=== PATIENT | female | born 1990 | race Caucasian/White ===

== ENCOUNTER → 2022-03-08 | Outpatient (CLI) | payer MEDICAID, OTHER ==
[~2022-03-08] MED LIST: IBUP-2029 PO; LEVO500T2 PO; METR500T PO
== END | disposition home or self-care (01) ==
LOC: LAB 09:14
PROVIDERS: ATTEND Obstetrics & Gynecology Obstetrics
DX: Z01.812 Encounter for preprocedural laboratory examination (principal); Z20.822 Contact with and (suspected) exposure to COVID-19
CPT/HCPCS: 87426

== ENCOUNTER 2022-03-09 05:23 | Inpatient (IN) | payer MEDICAID, OTHER ==
[~2022-03-09] VITALS: Ht 152.4 cm; Wt 87.1 kg
[2022-03-09] MEDS ORDERED: METHYLERGONOVINE MALEATE 0.2 MG/ML IM PRN (06:30)
[2022-03-09] MEDS ORDERED: CARBOPROST TROMETHAMINE 250 MCG/ML AMPUL IM PRN (06:30)
[2022-03-09] MEDS ORDERED: MISOPROSTOL 100MCG TABLET VG SCH (06:30)
[2022-03-09] MEDS ORDERED: LACTATED RINGERS 1,000 ML IV SCH (06:30)
[2022-03-09] MEDS ORDERED: NALOXONE HCL 0.4 MG/ML 1ML VIAL IM PRN (06:30)
[2022-03-09 07:06] LABS: BASOPHILS % 0.3 % (0.0-2.0); HEMATOCRIT. 32.9 % (36.0-48.0); LYMPHOCYTES % 27.5 % (20.0-50.0); MEAN CORPUSCULAR HEMOGLOBIN 25.6 pg (28.0-32.0); MEAN CORPUSCULAR VOLUME 76.5 fL (81.0-99.0); MEAN PLATELET VOLUME 7.7 fl (7.4-10.4); MONOCYTES % 7.9 % (2.0-8.0); NEUTROPHILS % 63.3 % (40.0-76.0); PLATELET 266 x1000/uL (130-400); RED CELL DISTRIBUTION WIDTH 16.1 % (11.6-14.6)
[2022-03-09 07:10] LABS: CLARITY URINE TURBID (CLEAR); COLOR URINE YELLOW (YELLOW); KETONES URINE NEGATIVE (NEGATIVE); LEUKOCYTE ESTERASE URINE 1+ (NEGATIVE); NITRITE URINE NEGATIVE (NEGATIVE); OCCULT BLOOD URINE NEGATIVE (NEGATIVE); PH URINE 6.5 (4.5-8.0); PROTEIN URINE TRACE (NEGATIVE); SPECIFIC GRAVITY URINE 1.019 (1.005-1.030); UROBILINOGEN URINE 0.2 E.U./dL (0.2-1.0)
[2022-03-09 07:20] LABS: INR 0.9; PARTIAL THROMBOPLASTIN TIME 29.9 sec (23.4-31.0); PROTHROMBIN TIME 9.6 sec (9.6-11.0)
[2022-03-09 07:32] LABS: *AMPHETAMINES SCREEN URINE NEGATIVE (NEGATIVE); *BARBITURATES SCREEN URINE NEGATIVE (NEGATIVE); *BENZODIAZEPINES SCREEN URINE NEGATIVE (NEGATIVE); *COCAINE SCREEN URINE NEGATIVE (NEGATIVE); CANNABINOID URINE SCREEN NEGATIVE (NEGATIVE); METHADONE URINE SCREEN NEGATIVE (NEGATIVE); OPIATES URINE SCREEN NEGATIVE (NEGATIVE); PHENCYCLIDINE URINE SCREEN NEGATIVE (NEGATIVE)
[2022-03-09 07:42] LABS: HEPATITIS B SURFACE ANTIGEN NEGATIVE
[2022-03-09] MEDS ORDERED: MORPHINE SULFATE/PF 1MG/ML 10ML AMP ONE (08:10)
[2022-03-09] MEDS ORDERED: EPHEDRINE SULFATE 50MG/ML VIAL ONE (08:11)
[2022-03-09] MEDS ORDERED: DEXAMETHASONE 4MG/ML 1ML VIAL ONE (08:11)
[2022-03-09] MEDS ORDERED: PHENYLEPHRINE HCL 10 MG/ML 1ML (IV VIAL) IV ONE (08:11)
[2022-03-09] MEDS ORDERED: ONDANSETRON HCL 4MG/2ML INJ ONE (08:11)
[2022-03-09] MEDS ORDERED: CEFAZOLIN SODIUM 1000MG/VIAL ONE ×2 (08:11→09:51)
[2022-03-09] MEDS ORDERED: OXYTOCIN 10 UNITS/ML 1ML ONE (08:12)
[2022-03-09] MEDS ORDERED: LANOLIN OINT 7GM TUBE TOP PRN (09:30)
[2022-03-09] MEDS ORDERED: IBUPROFEN 400MG TABLET PO PRN (09:30)
[2022-03-09] MEDS ORDERED: ONDANSETRON HCL 4MG/2ML INJ IV PRN (09:30)
[2022-03-09] MEDS ORDERED: KETOROLAC 60MG/2ML VIAL IM ONE (10:32)
[2022-03-09] MEDS ORDERED: NALOXONE HCL 0.4 MG/ML 1ML VIAL IV PRN (10:45)
[2022-03-09] MEDS ORDERED: KETOROLAC 30MG/ML VIAL IV SCH (10:45)
[2022-03-09] MEDS ORDERED: MORPHINE SULFATE 2 MG/ML CPJ (NOT FOR IM USE) IV PRN (10:45)
[2022-03-09 13:35] VITALS: BP 114/75
[2022-03-09 14:05] VITALS: BP 119/67
[2022-03-09] MEDS: KETOROLAC 30MG/ML VIAL IV SCH ×2 (16:34→20:19)
[2022-03-09] MEDS ORDERED: MEASLES,MUMPS&RUBELLA VACCINE 1 VIAL SUBCUT ONE (18:00)
[2022-03-09 20:00] VITALS: BP 97/56
[2022-03-09] MEDS: DEXT 5%/LR + PITOCIN 20UNITS/L 1,000 ML IV SCH (23:33)
[2022-03-10 00:01] VITALS: BP 110/62
[2022-03-10] MEDS ORDERED: KETOROLAC 30MG/ML VIAL IV SCH (03:00)
[2022-03-10] MEDS: KETOROLAC 30MG/ML VIAL IV SCH (03:03)
[2022-03-10 04:00] VITALS: BP 90/66
[2022-03-10 06:21] LABS: BASOPHILS % 0.2 % (0.0-2.0); EOSINOPHILS % 0.7 % (0.0-5.0); HEMATOCRIT. 28.4 % (36.0-48.0); HEMOGLOBIN. 9.5 g/dL (12.0-16.0); LYMPHOCYTES % 20.2 % (20.0-50.0); MEAN CORPUSCULAR HEMOGLOBIN 25.6 pg (28.0-32.0); MEAN CORPUSCULAR VOLUME 76.6 fL (81.0-99.0); MEAN PLATELET VOLUME 7.6 fl (7.4-10.4); MONOCYTES % 9.1 % (2.0-8.0); NEUTROPHILS % 69.8 % (40.0-76.0); PLATELET 262 x1000/uL (130-400); RED CELL DISTRIBUTION WIDTH 16.1 % (11.6-14.6)
[2022-03-10] MEDS: DEXT 5%/LR + PITOCIN 20UNITS/L 1,000 ML IV SCH (06:33)
[2022-03-10 10:00] VITALS: BP 91/50
[2022-03-10] MEDS: ACETAMINOPHEN WITH CODEINE 300/30MG TABLET PO PRN ×2 (10:33→18:54)
[2022-03-10 14:00] VITALS: BP 97/54
[2022-03-10 20:00] VITALS: BP 101/54
[2022-03-11] MEDS: ACETAMINOPHEN WITH CODEINE 300/30MG TABLET PO PRN ×3 (02:30→14:22)
[2022-03-11 04:00] VITALS: BP 95/54
[2022-03-11 08:00] VITALS: BP 108/68
[2022-03-11] MEDS ORDERED: BISACODYL 10MG SUPP PR NR (12:00)
[2022-03-11 15:00] VITALS: BP 102/62
[2022-03-11 15:55] VITALS: BP 102/62
== END 2022-03-11 16:30 | disposition home or self-care (01) | DRG 788 ==
LOC: OBSVTOIN 05:23 → 8 EST LDRP 05:23 → 8EST 13:49
PROVIDERS: ADMIT Obstetrics & Gynecology Obstetrics; ATTEND Obstetrics & Gynecology Obstetrics
PROC: 10D00Z1 Extraction of Products of Conception, Low, Open Approach (ICD-10-PCS; principal; 2022-03-09)
DX: O34.211 Maternal care for low transverse scar from previous cesarean delivery (principal); O69.81X0 Labor and delivery complicated by cord around neck, without compression, not applicable or unspecified; Z3A.37 37 weeks gestation of pregnancy; Z37.0 Single live birth
CPT/HCPCS: 36415; 80305; 81003; 85025; 86592; 86703; 86762; 86850; 86900; 87340; 88307; 90707; 99281; J0690; J1100; J1885; J2274; J2370; J2405; J2590; J3490; J7120